=== PATIENT | female | born 1970 | race Caucasian/White ===

== ENCOUNTER 2018-05-03 17:35 | Emergency (ER) | payer MEDICAID ==
[~2018-05-03] VITALS: Ht 165.1 cm; Wt 72.6 kg
--- NOTE | 2018-05-03 18:13 | NUR ---
DR COREAS AT THE BEDSIDE FOR MSE.
[2018-05-03] MEDS ORDERED: DICYCLOMINE HCL 10 MG/5 ML UDC LIQ PO ONE (18:30)
[2018-05-03] MEDS ORDERED: LIDOCAINE VISCUS 2% 15 ML UDC MM ONE (18:30)
[2018-05-03] MEDS ORDERED: FAMOTIDINE 20 MG TABLET PO ONE (18:30)
[2018-05-03] MEDS ORDERED: MAG HYDROX/AL HYDROX/SIMETH 30 ML LIQUID UDC PO ONE (18:30)
[2018-05-03 18:33] LABS: *URINE HCG, QUAL NEGATIVE (NEGATIVE)
[2018-05-03] MEDS ORDERED: LIDOCAINE VISCUS 2% 15 ML UDC ONE (18:37)
[2018-05-03] MEDS ORDERED: FAMOTIDINE 20 MG TABLET ONE (18:37)
[2018-05-03] MEDS ORDERED: MAG HYDROX/AL HYDROX/SIMETH 30 ML LIQUID UDC ONE (18:37)
[2018-05-03] MEDS ORDERED: DICYCLOMINE HCL 10 MG/5 ML UDC LIQ ONE (18:37)
[2018-05-03 18:42] LABS: BASOPHILS # (AUTO) 0.1 K/uL (0.0-8.0); BASOPHILS % (AUTO) 0.9 % (0.0-2.0); EOSINOPHILS % (AUTO) 0.3 % (0.0-7.0); HEMOGLOBIN 13.5 g/dL (10.9-14.3); LYMPHOCYTES # (AUTO) 2.7 K/uL (20.0-40.0); LYMPHOCYTES % (AUTO) 28.4 % (20.5-51.5); MEAN CORPUSCULAR HEMOGLOBIN 29.5 uug (24.7-32.8); MEAN CORPUSCULAR HGB CONC 34 g/dL (32.3-35.6); MEAN CORPUSCULAR VOLUME 87.7 fL (75.5-95.3); MONOCYTES # (AUTO) 0.6 K/uL (2.0-10.0); NEUTROPHILS # (AUTO) 6.1 K/uL (1.8-8.9); NEUTROPHILS % (AUTO) 64.4 % (38.5-71.5); PLATELET COUNT (AUTO) 228 K/uL (179-408); RED BLOOD CELL COUNT(AUTO) 4.57 MIL/uL (3.63-4.92); WHITE BLOOD COUNT (AUTO) 9.5 K/uL (3.8-11.8)
[2018-05-03 18:49] LABS: CREATININE 0.7 mg/dL (0.6-1.3); POTASSIUM 3.9 mmol/L (3.5-5.1)
[2018-05-03 18:58] LABS: BILIRUBIN,DIRECT 0.3 mg/dL (0.0-0.2); BILIRUBIN,TOTAL 1.5 mg/dL (0.2-1.0); TOTAL PROTEIN, SERUM 7.6 g/dL (6.4-8.2)
--- NOTE | 2018-05-03 19:18 | NUR ---
REPORT GIVEN TO GEETHA GALAN.
--- NOTE | 2018-05-03 19:20 | NUR ---
US TECH AT BEDSIDE
--- NOTE | 2018-05-03 19:29 | NUR ---
PT IN BED. PT'S VISITOR AT BEDSIDE. CALL PLACED TO [employer]TO[employer], FOR [employer].
--- NOTE | 2018-05-03 19:48 | NUR ---
MD COREAS AT BEDSIDE EXPLAINING [employer] OPTIONS
--- NOTE | 2018-05-03 19:55 | NUR ---
Patient discharged to home in stable conditon. Written and verbal after care instructions given. Patient verbalizes understanding of instructions. Patient reported significantly reduced level of abdominal pain prior to discharge. Patient able to ambulate unassisted with steady gait. Patient left with all personal belongings.
[2018-05-03 20:04] VITALS: BP 114/78
== END 2018-05-03 19:55 | disposition home or self-care (01) ==
LOC: ER 17:37
DX: G89.29 Other chronic pain (principal); R10.13 Epigastric pain; M79.1 Myalgia; Z90.49 Acquired absence of other specified parts of digestive tract
CPT/HCPCS: 36415; 70030-TC; 76700; 83690; 84703; 85025; 93005; A4663

== ENCOUNTER 2024-07-13 09:24 | Emergency (ER) | payer MEDICAID ==
[~2024-07-13] VITALS: Ht 165.1 cm; Wt 68.0 kg
[2024-07-13] MEDS ORDERED: ONDANSETRON 4 MG/2 ML VIAL ONE (09:51)
[2024-07-13] MEDS ORDERED: LIDOCAINE VISCUS 2% 15 ML UDC ONE (09:51)
[2024-07-13] MEDS ORDERED: MAG HYDROX/AL HYDROX/SIMETH 30 ML LIQUID UDC ONE (09:52)
[2024-07-13] MEDS ORDERED: FAMOTIDINE. 20 MG/2 ML VIAL IV ONE (09:52)
[2024-07-13] MEDS: LIDOCAINE VISCUS 2% 15 ML UDC MM ONE (09:53)
[2024-07-13] MEDS: IV NORMAL SALINE 1000 ML BAG IV ONE (09:53)
[2024-07-13] MEDS: ONDANSETRON 4 MG/2 ML VIAL IV ONE (09:53)
[2024-07-13] MEDS: MAG HYDROX/AL HYDROX/SIMETH 30 ML LIQUID UDC PO ONE (09:53)
[2024-07-13] MEDS: FAMOTIDINE. 20 MG/2 ML VIAL IV ONE (09:53)
[2024-07-13] MEDS ORDERED: FAMO-132 PO (09:54)
[2024-07-13] MEDS ORDERED: ONDA4TAB5 PO (09:54)
[2024-07-13 10:09] LABS: BASOPHILS # (AUTO) 0.1 K/UL (0.0-0.2); EOSINOPHILS # (AUTO) 0.1 K/uL (0.0-0.7); HEMATOCRIT 40.1 % (31.2-41.9); HEMOGLOBIN 13.4 g/dL (10.9-14.3); LYMPHOCYTES # (AUTO) 2.8 K/uL (0.8-4.8); LYMPHOCYTES % (AUTO) 37.8 % (20.5-51.5); MEAN CORPUSCULAR HEMOGLOBIN 29.4 uug (24.7-32.8); MEAN CORPUSCULAR HGB CONC 34 g/dL (32.3-35.6); MEAN CORPUSCULAR VOLUME 87.5 fL (75.5-95.3); MONOCYTES # (AUTO) 0.4 K/uL (0.1-1.30); MONOCYTES % (AUTO) 5.2 % (0.0-11.0); NEUTROPHILS # (AUTO) 4.1 K/uL (1.8-8.9); PLATELET COUNT (AUTO) 230 K/uL (179-408); RED BLOOD CELL COUNT(AUTO) 4.58 MIL/uL (3.63-4.92); WHITE BLOOD COUNT (AUTO) 7.5 K/uL (3.8-11.8)
[2024-07-13 10:10] LABS: DIFFERENTIAL COMMENT 1
[2024-07-13 10:12] LABS: CALCIUM 9.3 mg/dL (8.5-10.1); CREATININE 0.7 mg/dL (0.6-1.3); POTASSIUM 3.9 mmol/L (3.5-5.1)
[2024-07-13 10:18] LABS: ALBUMIN 3.9 g/dL (3.4-5.0); BILIRUBIN,DIRECT 0.2 mg/dL (0.0-0.2); BILIRUBIN,TOTAL 1.2 mg/dL (0.2-1.0); TOTAL PROTEIN, SERUM 7.5 g/dL (6.4-8.2)
[2024-07-13 10:48] LABS: *BILIRUBIN,URIN NEGATIVE (NEGATIVE); *CLARITY,URINE CLEAR (CLEAR); *COLOR,URINE LIGHT YELLOW (YELLOW); *KETONES,URINE NEGATIVE (NEGATIVE); *PROTEIN,URINE NEGATIVE (NEGATIVE); *UROBILINOGEN,URINE 0.2 E.U./dl (NORMAL); LEUKOCYTE ESTERASE ,URINE 1+ (NEGATIVE); NITRITE, URINE NEGATIVE (NEGATIVE); PH,URINE 7.5 (5.0-8.0); UGLUCOSE NEGATIVE (NEGATIVE)
[2024-07-13 10:56] LABS: *BLOOD, URINE TRACE (NEGATIVE)
[2024-07-13 11:11] LABS: BACTERIA,URINE FEW /HPF (NONE SEEN); SQUAMOUS EPITHELIAL CELL,UR MODERATE /HPF (NONE SEEN)
[2024-07-13] MEDS ORDERED: NITR100C6 PO (12:44)
[2024-07-13] MEDS ORDERED: OMEP20TA20 PO (13:08)
[2024-07-13 13:21] VITALS: BP 111/80; O2SAT 98
== END 2024-07-13 13:24 | disposition home or self-care (01) ==
LOC: ER 09:24
DX: N39.0 Urinary tract infection, site not specified (principal); N83.202 Unspecified ovarian cyst, left side; D25.9 Leiomyoma of uterus, unspecified; R93.89 Abnormal findings on diagnostic imaging of other specified body structures; R10.13 Epigastric pain; R11.0 Nausea; F32.A Depression, unspecified; Z90.49 Acquired absence of other specified parts of digestive tract; Z79.899 Other long term (current) drug therapy
CPT/HCPCS: 99285; 76705; 96374; 96361; 96375; 80076; 80048; 81001; 83690; 85025; 36415; 76856; 87086; J3490; J2405; J7040; A4606; A4663

== ENCOUNTER 2024-11-01 15:33 | Emergency (ER) | payer MEDICAID ==
[~2024-11-01] VITALS: Ht 162.6 cm; Wt 66.2 kg
[~2024-11-01 15:33] MED LIST: NITR100C6 PO; OMEP20TA20 PO; ONDA4TAB5 PO
[2024-11-01 17:54] VITALS: O2SAT 98
== END 2024-11-01 21:32 | disposition left against medical advice (07) ==
LOC: ER 15:34
DX: R11.0 Nausea (principal); Z53.21 Procedure and treatment not carried out due to patient leaving prior to being seen by health care provider
CPT/HCPCS: A4606; A4663